=== PATIENT | male | born 1950 | race Two or more races ===

== ENCOUNTER 2016-11-26 14:36 | Emergency (ER) | payer OTHER, MEDICAID ==
[2016-11-26] MEDS ORDERED: ASPIRIN 81 MG CHEWABLE TAB PO ONE (14:37)
--- NOTE | 2016-11-26 14:42 | CPEKG ---
Heart Rate: 70 RR Interval: 857 P-R Interval: 180 QRSD Interval: 104 QT Interval: 404 QTC Interval: 436 P [place]: 61 QRS [place]: -21 T Wave [place]: 49 EKG Severity - OTHERWISE NORMAL ECG - EKG Impression: SINUS RHYTHM EKG Impression: BORDERLINE LEFT AXIS DEVIATION Electronically Signed By: Serge Rose 26-Nov-2016 18:40:26
[2016-11-26] MEDS ORDERED: ASPIRIN 81 MG CHEWABLE TAB ONE (14:45)
[2016-11-26 15:09] VITALS: RESP 18; TEMP 99
[2016-11-26 15:20] LABS: ABSOLUTE IMMATURE GRANULOCYTES 0.07 10^3/uL (0.00-0.10); ADD DIFF? NO; ADD MORPH? NO; ADD SCAN? NO; ATYPICAL LYMPHOCYTE FLAG 30 (0-99); FRAGMENT RBC FLAG 20 (0-99); HEMATOCRIT 43.8 % (40.0-51.0); HEMOGLOBIN 13.9 g/dL (13.7-17.5); LEFT SHIFT FLG 10 (0-99); LIPEMIA HEMOLYSIS FLAG 80 (0-99); MEAN CELL HEMOGLOBIN 27.7 pg (27.9-34.1); MEAN CELL HEMOGLOBIN CONCENTR. 31.7 g/dL (32.4-36.7); MEAN CELL VOLUME 87.3 fL (81.5-99.8); MEAN PLATELET VOLUME 11.4 fL (8.7-11.7); PLATELET CLUMPS FLAG 20 (0-99); PLATELET COUNT 258 10^3/uL (150-400); RED BLOOD CELL COUNT 5.02 10^6/uL (4.40-6.38); RED CELL DISTRIBUTION WIDTH 19.9 % (11.5-15.2)
[2016-11-26 15:26] LABS: ANION GAP 13 mEq/L (8-16); CALCIUM 8.8 mg/dL (8.5-10.4); CARBON DIOXIDE 23 mEq/l (22-31); CHLORIDE 105 mEq/L (97-110); CREATININE 1.1 mg/dL (0.7-1.3); GLOMERULAR FILTRATION RATE > 60; GLUCOSE 169 mg/dL (70-100); POTASSIUM 4.7 mEq/L (3.5-5.2); SODIUM 141 mEq/L (134-144)
[2016-11-26 15:40] LABS: TROPONIN I < 0.012 ng/mL (0-0.034)
--- NOTE | 2016-11-26 16:04 | EDPHY ---
H & P Time Seen by Provider: 11/26/16 14:47 HPI/ROS: Chief complaint. Chest pain HPI. 66-year-old male presents to the emergency department with complaints of chest discomfort. He had chest pain last evening at about 9:00 p.m.. Initially was sharp at 1st and then felt like pressure. He describes left anterior pressure radiating through to his back. It resolved after approximately 30 minutes. Again this morning he had an episode of chest pressure and then again after lunch. No shortness of breath. He describes his discomfort is worse with taking a deep breath. He has no symptoms now. Was also diaphoretic. No unusual leg symptoms. He has had similar previous symptoms. He has not been sick and has had no fever. He has had some cough which is been chronic. He receives chemotherapy at home for colon cancer and his last chemo was 3 days ago. For the previous similar symptoms he saw his supervisor rolling room, Dr. Browning, who prescribed isosorbide. Patient also has a pacemaker. He had an angiogram 1 year ago but no stent. ROS Constitutional. no fever/chills, no weakness Eyes. no problems with vision ENT. no sore throat, no nasal drainage Cardiovascular. Chest pain Respiratory. no shortness of breath, no cough Abdominal. no abdominal pain, no nausea/vomiting, no diarrhea . no problems urinating MS. no calf pain/swelling, no neck/back pain, no joint pain Skin. Diaphoresis Lymph. no swollen glands Neuro. 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 Kidney stones. Colon cancer with rectal surgery. Cholecystectomy Social History: , daily smoker, no alcohol Smoking Status: Heavy smoker Physical Exam: General Appearance: Alert well-developed male mild distress vital signs significant for blood pressure 140/1 are 1 Eyes: Pupils equal and round no pallor or injection. ENT, Mouth: Mucous membranes are moist. Respiratory: There are no retractions, lungs are clear to auscultation. Cardiovascular: Regular rate and rhythm. Gastrointestinal: Abdomen is soft and nontender, no masses, bowel sounds normal. Neurological: Awake and alert, sensory and motor exams grossly normal. Skin: Warm and dry, no rashes. Musculoskeletal: Neck is supple nontender. Extremities symmetrical, full range of motion. Psychiatric: Patient is oriented X 3, there is no agitation. Constitutional: Initial Vital Signs Temperature (C) 37.2 C 11/26/16 14:37 Heart Rate 72 11/26/16 14:37 Respiratory Rate 18 11/26/16 14:37 Blood Pressure 140/101 H 11/26/16 14:37 O2 Sat (%) 93 11/26/16 14:37 O2 Delivery Mode Nasal Cannula O2 (L/minute) 2 Allergies/Adverse Reactions: No Known Allergies Allergy (Unverified 11/26/16 14:59) Home Medications: Medication Instructions Recorded Losartan Potassium [Cozaar] 25 mg PO 03/06/14 Metoprolol Tartrate 01/02/16 Capecitabine 2,000 mg DAILY 11/26/16 Medical Decision Making - Diagnostics Imaging Results: Imaging Impressions Chest X-Ray 11/26/16 15:13 Impression: Stable cardiomegaly. No evidence for acute cardiopulmonary abnormality. Other chronic findings, as above, which are stable. One-view chest x-ray shows no evidence of pneumonia or pneumothorax. No significant change from previous chest x-ray [address] angiogram chest shows no evidence for pulmonary embolus but does show extensive coronary artery calcification. Procedures: IV normal saline, monitor, aspirin Review of patient's old records shows the patient having an angiogram of coronary arteries in April 2015 showing mild to moderate diffuse disease. ED Course/Re-evaluation: Patient has an elevated D-dimer. He and I discussed this and the recommendation for CT angiogram his chest. He expresses understanding and agreement Re-evaluation at 5:55 p.m.--patient is stable and does not have chest discomfort. The patient and I discussed his laboratory evaluation, his imaging studies, his EKG findings. We discussed extensive coronary artery disease as well as his previous heart catheterization from April 2015. I told the patient I believe that this is likely acute coronary syndrome and that his mild to moderate heart disease has progressed. I recommended strongly that the patient be transferred and admitted to [facility] for further evaluation. The patient declines and wants to go home and follow up with Dr. Browning as an outpatient tomorrow. The patient and I discussed risks and benefits of this. I explained to the patient that I think that this discomfort is is likely coming from his heart and that this is acute coronary syndrome. I explained that he could certainly have a heart attack and tonight and prior to seeing Dr. Browning. He understands the risks. He is clearly able to make an informed decision. I have recommended to him again that we keep him in the hospital however he declines. I encouraged him to return to the ER should he have any further chest discomfort or trouble breathing before he is able to see Dr. Browning. I have asked him to call Dr. Browning tomorrow morning when the office opens to arrange outpatient follow-up tomorrow. He expresses understanding and agreement Differential Diagnosis: 66-year-old male with known coronary artery disease with mild to moderate disease diffusely in April 2015. He has risk factors of continuing to be a heavy smoker. He also has hypertension. He had chest pressure and symptoms consistent with coronary artery disease. I believe this is acute coronary syndrome. I have also considered pneumonia and pulmonary embolus as he was having some exacerbation of his chest discomfort with deep breathing - Data Points Laboratory Results: Laboratory Results 11/26/16 14:55 11/26/16 14:55 11/26/16 11/26/16 11/26/16 14:55 14:55 14:05 WBC 7.34 10^3/uL 10^3/uL (3.80-9.50) RBC 5.02 10^6/uL 10^6/uL (4.40-6.38) Hgb 13.9 g/dL g/dL (13.7-17.5) Hct 43.8 % % (40.0-51.0) MCV 87.3 fL fL (81.5-99.8) MCH 27.7 pg L pg (27.9-34.1) MCHC 31.7 g/dL L g/dL (32.4-36.7) RDW 19.9 % H % (11.5-15.2) Plt Count 258 10^3/uL 10^3/uL (150-400) MPV 11.4 fL fL (8.7-11.7) Neut % (Auto) 67.6 % % (39.3-74.2) Lymph % (Auto) 25.9 % % (15.0-45.0) [place] % (Auto) 4.4 % L % (4.5-13.0) Eos % (Auto) 0.4 % L % (0.6-7.6) Baso % (Auto) 0.7 % % (0.3-1.7) Nucleat RBC Rel Count 0.0 % % (0.0-0.2) Absolute Neuts (auto) 4.97 10^3/uL 10^3/uL (1.70-6.50) Absolute Lymphs (auto) 1.90 10^3/uL 10^3/uL (1.00-3.00) Absolute Monos (auto) 0.32 10^3/uL 10^3/uL (0.30-0.80) Absolute Eos (auto) 0.03 10^3/uL 10^3/uL (0.03-0.40) Absolute Basos (auto) 0.05 10^3/uL 10^3/uL (0.02-0.10) Absolute Nucleated RBC 0.00 10^3/uL 10^3/uL (0-0.01) Immature Gran % 1.0 % % (0.0-1.1) Immature Gran # 0.07 10^3/uL 10^3/uL (0.00-0.10) D-Dimer 0.58 ug/mLFEU H ug/mLFEU (0.00-0.50) Sodium 141 mEq/L mEq/L (134-144) Potassium 4.7 mEq/L mEq/L (3.5-5.2) Chloride 105 mEq/L mEq/L (97-110) Carbon Dioxide 23 mEq/l mEq/l (22-31) Anion Gap 13 mEq/L mEq/L (8-16) BUN 24 mg/dL H mg/dL (7-23) Creatinine 1.1 mg/dL mg/dL (0.7-1.3) Estimated GFR > 60 Glucose 169 mg/dL H mg/dL (70-100) Calcium 8.8 mg/dL mg/dL (8.5-10.4) Troponin I < 0.012 ng/mL ng/mL (0-0.034) NT-Pro-B Natriuret Pep 254 pg/mL H pg/mL (0-125) Medications Given: Discontinued Medications Aspirin (Aspirin) 324 mg PO EDNOW ONE Stop: 11/26/16 14:38 Last Admin: 11/26/16 14:38 Dose: 324 mg Sodium Chloride (Ns) 1,000 mls @ 0 mls/hr IV ONCE ONE; Wide Open PRN Reason: Protocol Stop: 11/26/16 16:06 Last Admin: 11/26/16 16:26 Dose: 1,000 mls Departure - Departure Disposition: Home, Routine, Self-Care Clinical Impression: Chest pain Qualifiers: Chest pain type: chest pain on breathing Qualified Code(s): R07.1 - Chest pain on breathing Condition: Good Instructions: Chest Pain (ED) Additional Instructions: I think that this pain is likely coming from your heart. I have recommended admission to the hospital however you have declined admission. Continue regular medications. Take an aspirin 325 mg each day. Call Dr. Browning office tomorrow morning at 8:30 a.m. when they open to arrange follow- up and further evaluation tomorrow. Return for worsening symptoms including further chest discomfort or trouble breathing. Referrals: PENG HEAD [Primary Care Provider] - As per Instructions Inocencio Browning MD [Medical Doctor] - 1 day without fail
[2016-11-26] MEDS ORDERED: NS 1,000 ML IV ONE (16:05)
[2016-11-26 16:29] VITALS: PULSE 63
[2016-11-26] MEDS ORDERED: IOPAMIDOL (ISOVUE 370) 100 ML BTL IV ONE (16:36)
[2016-11-26 18:09] VITALS: BP 143/84; O2SAT 95
== END 2016-11-26 18:03 | disposition home or self-care (01) ==
LOC: CED 15:07
DX: R07.1 Chest pain on breathing (principal); F17.200 Nicotine dependence, unspecified, uncomplicated; Z85.46 Personal history of malignant neoplasm of prostate; Z85.038 Personal history of other malignant neoplasm of large intestine
CPT/HCPCS: 71010; 71275; 93005; 96360; 99285; Q9967; 80048-PO; 83880-PO; 84484-PO; 85025-PO; 85378-PO

== ENCOUNTER 2017-04-16 14:56 | Emergency (ER) | payer OTHER, MEDICAID ==
[2017-04-16 15:10] VITALS: TEMP 97.9
[2017-04-16] MEDS ORDERED: IPRATROPIUM/ALBUTEROL 3 ML DEYVIAL IH ONE (15:41)
[2017-04-16 15:58] LABS: PLATELET COUNT 242 10^3/uL (150-400)
--- NOTE | 2017-04-16 15:59 | CPEKG ---
Heart Rate: 79 RR Interval: 759 P-R Interval: 180 QRSD Interval: 104 QT Interval: 380 QTC Interval: 436 P [place]: 71 QRS [place]: -5 T Wave [place]: 58 EKG Severity - NORMAL ECG - EKG Impression: SINUS RHYTHM Electronically Signed By: Rojas Bajwa 16-Apr-2017 22:30:53
--- NOTE | 2017-04-16 15:59 | CPEKG ---
Heart Rate: 79 RR Interval: 759 P-R Interval: 180 QRSD Interval: 104 QT Interval: 380 QTC Interval: 436 P [place]: 71 QRS [place]: -5 T Wave [place]: 58 EKG Severity - NORMAL ECG - EKG Impression: SINUS RHYTHM Electronically Signed By: Rojas Bajwa 16-Apr-2017 22:30:53
--- NOTE | 2017-04-16 16:02 | EDPHY ---
H & P Stated Complaint: mid sternal chest pressure,coughing since Sat,dark green mucous,chills Time Seen by Provider: 04/16/17 15:22 HPI/ROS: This patient has a dry cough 2 days duration occasionally productive of green sputum. He has associated fever to 100 degrees Sunday has diminished with Tylenol. He has mild nasal congestion associated with this but primarily feeling of chest congestion and some pleuritic discomfort as well that he describes as mild in intensity and substernal location worse with a deep breath or cough. The patient is concerned about bronchitis or pneumonia. He has a history of prior pneumonia in 2013. He drove himself here by private vehicle for further evaluation. ROS: Constitutional: Fevers as per HPI. No high fevers or chills. He reports mild fatigue. HEENT: Mild nasal congestion no other HEENT complaints Pulmonary: As per HPI. No hemoptysis. No respiratory distress. He has been using his albuterol inhaler more than usual. Cardiovascular: As per HPI. No heart palpitations or lightheadedness. No leg swelling. He reports mild leg pain bilaterally described as achy in nature. GI: No nausea vomiting. No abdominal pain. Integumentary: No skin rash. No diaphoresis. Neuro: No complaints 10 point ROS is otherwise negative. Source: Patient Exam Limitations: No limitations - Medical/Surgical History Hx Asthma: No Hx Chronic Respiratory Disease: Yes Hx Diabetes: No Hx Cardiac Disease: Yes Hx Renal Disease: No Hx Cirrhosis: No Hx Alcoholism: No Hx HIV/AIDS: No Hx Splenectomy or Spleen Trauma: No Other PMH: lymphoma,pneumonia 08/2013. prostate ca ,cholesterol,gerd. cardiac pacer-ahmet; syncope. kidney stones. 40 year smoker. colon cancer dx 09/2016 , rectal surgery 09/2016. Cholecystectomy. Hernia repairs. surg-kiana,bilat hernia,pacemaker-rt - Family History Significant Family History: No pertinent family hx - Social History Smoking Status: Heavy smoker Alcohol Use: Occasionally Drug Use: None - Physical Exam Exam: General Appearance: Alert, no distre vital signs are notable for tachypnea at 24 and O2 sat on room air of 91% Eyes: Pupils equal and round no pallor or injection. ENT, Mouth: Mucous membranes moist. Respiratory: Distant breath sounds bilaterally with mild wheezing and rhonchi. Cardiovascular: Regular rate and rhythm. Gastrointestinal: Abdomen is soft and nontender, no masses, bowel sounds normal. Neurological: GCS 15 Skin: Warm and dry, no rashes. Musculoskeletal: Neck is supple nontender. Extremities are symmetrical, full range of motion. Psychiatric: Mood and affect are normal DIFFERENTIAL DIAGNOSIS: After history and physical exam differential diagnosis was considered for COPD exacerbation, bronchitis, pneumonia, PE, coronary syndrome Constitutional: Initial Vital Signs Temperature (C) 36.6 C 04/16/17 15:06 Heart Rate 81 04/16/17 15:06 Respiratory Rate 24 H 04/16/17 15:06 Blood Pressure 132/99 H 04/16/17 15:06 O2 Sat (%) 91 L 04/16/17 15:06 O2 Delivery Mode Room Air O2 (L/minute) 2 Allergies/Adverse Reactions: No Known Allergies Allergy (Verified 04/16/17 15:05) Home Medications: Medication Instructions Recorded Losartan Potassium [Cozaar] 25 mg PO 03/06/14 Metoprolol Tartrate 01/02/16 Capecitabine 2,000 mg DAILY 11/26/16 Albuterol Hfa Anes Only [Proair 2 puffs IH Q4 PRN #1 mdi 04/16/17 Hfa Icu (*)] Azithromycin [Zithromax] 250 mg PO DAILY #6 tab 04/16/17 Fluticasone Hfa 220 Mcg [Flovent 2 puffs IH DAILY #1 mdi 04/16/17 220 MCG Hfa MDI (*)] Medical Decision Making - Diagnostics EKG Interpretation: 12 lead EKG performed at 3:03 p.m. Sinus rhythm at 79 Intervals: Normal throughout [place]: Normal throughout ST segments: Normal throughout Overall assessment: Normal EKG Imaging Results: Imaging Impressions Chest X-Ray 04/16/17 15:15 Impression: Nothing acute radiographically. Chest/Thorax CTA 04/16/17 16:32 Impression: 1. No pulmonary embolus to the segmental level. 2. Stable mildly aneurysmal descending thoracic aorta. 3. Stable hypoattenuating lesions in the adrenal glands bilaterally, partially visualized, which remain suspicious for adrenal adenomas. Dr. Frye discussed these findings by telephone with PENG CORTES on 04/16/2017 at 17:25. Chest x-ray: No acute abnormalities by my interpretation-no focal infiltrate Imaging: I viewed and interpreted images myself ED Course/Re-evaluation: IV, monitor, supplemental O2 nasal cannula with O2 sat from 91% room air to 96% DuoNeb with increased aeration decreased wheeze Labs reveal normal CBC by mild left shift with increased neutrophils. Chemistries normal exception of mild elevated glucose. I counseled the patient regarding his hyperglycemia. Encouraged him to follow up with primary care physician about potential early or borderline diabetes. D-dimer is mildly elevated. Troponin is normal Given elevated D-dimer, or risk factor for PE of smoking and colon cancer, proceeded with CT angio chest which proved to be negative for PE or other significant abnormalities. After return from CT asked the patient is still having chest discomfort he denied any chest discomfort Clinical findings are consistent with bronchitis/mild COPD exacerbation. I counseled the patient regarding this. Given his slightly elevated glucose will hold off on IV or oral steroids given his improvement with DuoNeb alone. Suggested inhaled steroids along with continued albuterol. Also treated with a dose of Zithromax 500 mg p.o. with plan to continue Zithromax as an outpatient. EKG is normal and troponin is normal. No evidence of acute cardiac ischemic disease. The time discharge patient feels improved with last wheezing and coughing. He declined a 2nd neb. - Data Points Laboratory Results: Laboratory Results 04/16/17 15:50 04/16/17 15:50 04/16/17 04/16/17 04/16/17 15:50 15:50 15:50 WBC 8.98 10^3/uL 10^3/uL (3.80-9.50) RBC 4.65 10^6/uL 10^6/uL (4.40-6.38) Hgb 14.7 g/dL g/dL (13.7-17.5) Hct 45.0 % % (40.0-51.0) MCV 96.8 fL fL (81.5-99.8) MCH 31.6 pg pg (27.9-34.1) MCHC 32.7 g/dL g/dL (32.4-36.7) RDW 17.8 % H % (11.5-15.2) Plt Count 242 10^3/uL 10^3/uL (150-400) MPV 11.2 fL fL (8.7-11.7) Neut % (Auto) 76.9 % H % (39.3-74.2) Lymph % (Auto) 17.7 % % (15.0-45.0) [place] % (Auto) 3.6 % L % (4.5-13.0) Eos % (Auto) 0.2 % L % (0.6-7.6) Baso % (Auto) 0.4 % % (0.3-1.7) Nucleat RBC Rel Count 0.0 % % (0.0-0.2) Absolute Neuts (auto) 6.90 10^3/uL H 10^3/uL (1.70-6.50) Absolute Lymphs (auto) 1.59 10^3/uL 10^3/uL (1.00-3.00) Absolute Monos (auto) 0.32 10^3/uL 10^3/uL (0.30-0.80) Absolute Eos (auto) 0.02 10^3/uL L 10^3/uL (0.03-0.40) Absolute Basos (auto) 0.04 10^3/uL 10^3/uL (0.02-0.10) Absolute Nucleated RBC 0.00 10^3/uL 10^3/uL (0-0.01) Immature Gran % 1.2 % H % (0.0-1.1) Immature Gran # 0.11 10^3/uL H 10^3/uL (0.00-0.10) D-Dimer 0.83 ug/mLFEU H ug/mLFEU (0.00-0.50) Sodium 138 mEq/L mEq/L (134-144) Potassium 4.8 mEq/L mEq/L (3.5-5.2) Chloride 102 mEq/L mEq/L (97-110) Carbon Dioxide 25 mEq/l mEq/l (22-31) Anion Gap 11 mEq/L mEq/L (8-16) BUN 19 mg/dL mg/dL (7-23) Creatinine 1.2 mg/dL mg/dL (0.7-1.3) Estimated GFR > 60 Glucose 216 mg/dL H mg/dL (70-100) Calcium 8.9 mg/dL mg/dL (8.5-10.4) Troponin I < 0.012 ng/mL ng/mL (0.000-0.034) Medications Given: Discontinued Medications Albuterol/Ipratropium (Duoneb) 3 ml IH EDNOW ONE Stop: 04/16/17 15:42 Last Admin: 04/16/17 15:49 Dose: 3 ml Azithromycin (Zithromax) 500 mg PO EDNOW ONE PRN Reason: Protocol Stop: 04/16/17 17:27 Last Admin: 04/16/17 17:56 Dose: 500 mg Departure - Departure Disposition: Home, Routine, Self-Care Clinical Impression: COPD exacerbation, Atypical chest pain Condition: Good Instructions: Albuterol (By breathing), Azithromycin (By mouth), Fluticasone ( By breathing), How to Stop Smoking (ED), COPD (Chronic Obstructive Pulmonary Disease) (ED) Additional Instructions: Diagnosis: COPD exacerbation 2. Chest pain Plan: Humidifier Zithromax antibiotic Flovent steroid inhaler to diminish inflammation Albuterol inhaler with spacer for cough, wheeze or shortness of breath Quit smoking Follow up with primary care physician for any symptoms that persist beyond the next 5-7 days Return for any significant worsening despite treatment plan Referrals: NONE *PRIMARY CARE P,. [Unknown] - As per Instructions Stand Alone Forms: Work Excuse Prescriptions: Albuterol Hfa Anes Only [Proair Hfa Icu (*)] 2 puffs IH Q4 PRN #1 mdi PRN Reason: Wheezing Azithromycin [Zithromax] 250 mg PO DAILY #6 tab Fluticasone Hfa 220 Mcg [Flovent 220 MCG Hfa MDI (*)] 2 puffs IH DAILY #1 mdi
[2017-04-16] MEDS ORDERED: IOPAMIDOL (ISOVUE 370) 100 ML BTL IV ONE (16:38)
[2017-04-16] MEDS ORDERED: AZITHROMYCIN 250 MG TAB PO ONE (17:26)
[2017-04-16 18:01] VITALS: BP 124/94; PULSE 79; RESP 16; O2SAT 93
== END 2017-04-16 17:59 | disposition home or self-care (01) ==
LOC: CED 14:56
DX: J44.1 Chronic obstructive pulmonary disease with (acute) exacerbation (principal); F17.200 Nicotine dependence, unspecified, uncomplicated; Z85.038 Personal history of other malignant neoplasm of large intestine; Z85.46 Personal history of malignant neoplasm of prostate; Z95.0 Presence of cardiac pacemaker
CPT/HCPCS: 71020; 71275; 93005; 99285; Q9967; 80048-PO; 84484-PO; 85025-PO; 85378-PO